=== PATIENT | male | born 1975 | race Caucasian/White ===

== ENCOUNTER 2021-02-01 19:13 | Emergency (ER) | payer SELFPAY ==
[~2021-02-01] VITALS: Ht 182.9 cm; Wt 113.4 kg
[2021-02-01 19:21] VITALS: BP 134/86
--- NOTE | 2021-02-01 19:45 | NUR ---
45 Y/O MALE PATIENT PRESENTS TO ED WITH WHOLE BODY RASHES. PT STATES "IT USUALLY APPEARS WHEN IT'S TOO HOT, I TOOK ONE BENADRYL PRIOR TO COMING HERE, BUT THERE WAS NO IMPROVEMENT". DENIES N/V/D; SKIN IS FULL OF REDNESS, RASHES; AAOX4 WITH EVEN AND STEADY GAIT; LUNGS CLEAR BL; HR EVEN AND REGULAR; PT DENIES ANY FEVER, CP, SOB, OR COUGH AT THIS TIME; PATIENT STATES PAIN OF 0/10 AT THIS TIME; VSS; PATIENT POSITIONED FOR COMFORT; HOB ELEVATED; BEDRAILS UP X2; BED DOWN. ER MD MADE AWARE OF PT STATUS. NKA PMH: DENIES
[2021-02-01] MEDS ORDERED: methylPREDNISolone SS 125 MG in WATER STERILE 2 ML IM ONE (20:10)
[2021-02-01] MEDS ORDERED: diphenhydrAMINE 50 MG CAP PO ONE (20:10)
[2021-02-01] MEDS ORDERED: methylPREDNISolone SS 125 MG/2 ML VIAL ONE (20:12)
[2021-02-01] MEDS ORDERED: WATER STERILE 10 ML MC ONE (20:12)
--- NOTE | 2021-02-01 20:14 | NUR ---
PT MOVED TO CHAIR C
[2021-02-01] MEDS ORDERED: DIPH25TA53 PO (20:57)
[2021-02-01] MEDS ORDERED: FAMO-90 PO (20:57)
[2021-02-01] MEDS ORDERED: EPIN1KIT31 IM (20:57)
[2021-02-01] MEDS ORDERED: PRED20TA5 PO (20:57)
[2021-02-01 21:04] VITALS: BP 134/86
--- NOTE | 2021-02-01 21:04 | NUR ---
Patient discharged with v/s stable. Written and verbal after care instructions given and explained. Patient alert, oriented and verbalized understanding of instructions. Ambulatory with steady gait. All questions addressed prior to discharge. ID band removed. Patient advised to follow up with PMD. Rx of BENADRYL, PEPCID, PREDNISONE, AND EPIPEN given. Patient educated on indication of medication including possible reaction and side effects. Opportunity to ask questions provided and answered.
== END 2021-02-01 21:04 | disposition home or self-care (01) ==
LOC: MED 19:13
DX: L50.0 Allergic urticaria (principal); Z79.899 Other long term (current) drug therapy
CPT/HCPCS: 96372; 99283; J2930; Q0163

== ENCOUNTER 2021-08-03 13:57 | Emergency (ER) | payer MEDICAID ==
[~2021-08-03] VITALS: Ht 180.3 cm; Wt 113.4 kg
[~2021-08-03 13:57] MED LIST: DIPH25TA53 PO; EPIN1KIT31 IM; FAMO-90 PO; PRED20TA5 PO
[2021-08-03 14:39] VITALS: BP 154/94
[2021-08-03] MEDS ORDERED: LIDOCAINE MPF 1% 10 MG/ML VIAL INJ ONE (15:10)
[2021-08-03] MEDS ORDERED: BACITRACIN OINT 500 UNITS/GM PKT TP ONE (15:10)
[2021-08-03] MEDS ORDERED: KETOROLAC 30 MG/ML VIAL IM ONE (15:10)
--- NOTE | 2021-08-03 15:12 | NUR ---
45/M BIB SELF WITH C/O 4TH DIGIT PAIN ON LEFT HAND. STATES HE WAS CUTTING HIS NAILS 2 WEEKS AGO AND THINKS HE MAY HAVE CUT HIS FINGER, STATING PAIN AND SWELLING HAS BEEN WORSENING SINCE. DENIES FEVERS OR CHILLS.
[2021-08-03] MEDS ORDERED: LIDOCAINE 2% 1000 MG/50 ML VIAL INJ ONE (15:47)
[2021-08-03] MEDS ORDERED: CEPH-588 PO (15:52)
[2021-08-03] MEDS ORDERED: BACI1PAC6 TP (15:52)
[2021-08-03] MEDS ORDERED: NAPR-54 PO (15:52)
--- NOTE | 2021-08-03 16:00 | NUR ---
PT'S INDEX FINGER ON LEFT HAND WAS DRESSED WITH BACITRACIN, NONADHERENT DRESSING AND COFLEX. ERPA NOTIFIED
[2021-08-03 16:15] VITALS: BP 140/90
--- NOTE | 2021-08-03 16:16 | NUR ---
PATIENT CONDITION STABLE D/C HOME WITH INSTRUCTIONS AFTER CARE REVIEWED UNDERSTOOD LEFT ER AMBULATORY WITH STEADY GAIT.
== END 2021-08-03 16:16 | disposition home or self-care (01) ==
LOC: MED 13:57
DX: L03.012 Cellulitis of left finger (principal); Z79.1 Long term (current) use of non-steroidal anti-inflammatories (NSAID); Z79.2 Long term (current) use of antibiotics; Z79.899 Other long term (current) drug therapy
CPT/HCPCS: 10060; 96372; 99283; J1885; J2001

== ENCOUNTER 2023-02-07 11:12 | Emergency (ER) | payer MEDICAID ==
[~2023-02-07] VITALS: Ht 182.9 cm; Wt 115.7 kg
[~2023-02-07 11:12] MED LIST changes: +BACI-416 TP; +CEPH-588 PO; +NAPR-54 PO
[2023-02-07 11:38] VITALS: BP 154/100
[2023-02-07] MEDS ORDERED: ONDANSETRON 4 MG ODT PO ONE (12:40)
[2023-02-07] MEDS ORDERED: FAMO-90 PO (12:42)
[2023-02-07] MEDS ORDERED: IMO2 PO (12:42)
[2023-02-07] MEDS ORDERED: ONDA-188 SL (12:42)
[2023-02-07 13:15] VITALS: BP 150/95
--- NOTE | 2023-02-07 13:15 | NUR ---
Patient discharged with v/s stable. Written and verbal after care instructions given and explained. Patient alert, oriented and verbalized understanding of instructions. Ambulatory with steady gait. All questions addressed prior to discharge. ID band removed. Patient advised to follow up with PMD. Rx of pepcid, zofran, loperamide given. Patient educated on indication of medication including possible reaction and side effects. Opportunity to ask questions provided and answered.
== END 2023-02-07 13:15 | disposition home or self-care (01) ==
LOC: MED 11:12
DX: R11.2 Nausea with vomiting, unspecified (principal); R19.7 Diarrhea, unspecified; R03.0 Elevated blood-pressure reading, without diagnosis of hypertension; R51.9 Headache, unspecified; Z79.899 Other long term (current) drug therapy
CPT/HCPCS: 99283; Q0162